=== PATIENT | female | born 1985 | race Caucasian/White ===

== ENCOUNTER 2016-08-17 22:14 | Emergency (ER) | payer OTHER ==
[~2016-08-17] VITALS: Ht 162.6 cm; Wt 65.9 kg
[2016-08-17 22:19] VITALS: BP 128/90; PULSE 83; RESP 16; O2SAT 98
[2016-08-17 22:58] LABS: APPEARANCE,URINE CLEAR (CLEAR,HAZY); COLOR,URINE YELLOW (YELLOW); OCCULT BLOOD,URINE NEGATIVE (NEGATIVE); UROBILINOGEN,URINE NORMAL (NORMAL)
--- NOTE | 2016-08-17 23:12 | ED.REPORT ---
HPI-General Illness Date of Service Aug 17, 2016 ED Provider: Ramy Bingham MD A 31 year old female with a history of smoking and migraines presents to the ED complaining of flu-like symptoms. Her symptoms began as a sore throat five days ago, and progressed to body aches, headache, productive cough with green and yellow sputum, rhinorrhea, nausea, and vomiting. The pt has been missing work, and is concerned because her symptoms do not appear to be improving. Nursing Notes Stated Complaint: FLU LIKE SYMPTOMS Chief Complaint: FLU/Cold Symptoms Nursing Notes Reviewed: Yes Allergies: Coded Allergies: No Known Allergies (Unverified , 08/17/16) Scheduled Nicotine 7 mg/24 hr Patch (Nicotine 7 mg/24 hr Patch) 1 Each Patch.td24 1 PATCH TRANSDERM DAILY Ondansetron ODT (Ondansetron ODT) 8 Mg Tab.rapdis 8 MG PO QID General Time Seen by MD: 22:49 Chief Complaint Flu-like illness Hx Obtained From: Patient Arrived By: Walk-in Sudden in Onset?: No Onset Occurred: 5 days ago Symptom Duration: Since onset Recent Healthcare: No recent doctor visit, No recent hospitalization Similar Sx Previous: No Past Medical History Past Medical History migraines Past Surgical History none reported Smoking History Current Every Day Smoker Ambulatory Status Independent Review of Systems Full Review of Systems Ears / Nose / Throat: Reports: Sore throat Respiratory: Reports: Prod cough, green, Prod cough, yellow GI: Reports: Nausea, Vomiting Musculoskeletal: Reports: Myalgia, Denies: Back pain, Neck pain Skin: Denies Rash Allergy / Immune: Reports: Rhinorrhea Neurologic: Reports: Headache Complete sys rev & neg: except as marked. Physical Exam Vital Signs Vital Signs Date Time Temp Pulse Resp B/P Pulse Ox O2 Delivery O2 Flow Rate FiO2 08/17/16 22:19 36.3 83 16 128/90 98 Initial VS: Reviewed General/Constitutional: Awake, Alert Head / Eyes: Atraumatic, Normocephalic, PERRL, EOMI ENT: Atraumatic, Airway patent, Pharynx NL Mouth: Positive: Mucous membranes dry (slight) Neck: Atraumatic, Supple, Full range of motion Respiratory / Chest: Atraumatic, Breath sounds NL, Breath sounds = bilat, No respiratory distress Cardiovascular: Heart rate NL, Regular rhythm, Heart sounds NL Abdomen: Atraumatic, Soft, Non-tender Back: Atraumatic, Full range of motion Upper Extremities Upper Extremity / MS: Atraumatic, Full range of motion Lower Extremity / Pelvis / MS: Atraumatic, Full range of motion Skin: Atraumatic, Color NL, No rash, Warm, Dry Neurologic: Oriented X3, Speech NL, No motor deficits, No sensory deficits Psychiatric: Affect NL, Mood NL Interpretation & Diagnostics Lab Results Interpretation Test 08/17/16 22:30 Urine Color Yellow (YELLOW) Urine Appearance Clear (CLEAR,HAZY) Urine pH 6.0 (5.0-8.0) Urine Specific [place] 1.015 (1.003-1.035) Urine Protein Negativemg/dL (NEG,TRACE) Urine Glucose (UA) Negativemg/dL (NEGATIVE) Urine Ketones Negativemg/dL (NEGATIVE) Urine Occult Blood Negative (NEGATIVE) Urine Nitrite Negative (NEGATIVE) Urine Bilirubin Negative (NEGATIVE) Urine Urobilinogen Normalmg/dL (NORMAL) Urine Leukocyte Esterase Negative (NEGATIVE) Urine RBC 0-2/hpf (0-2) Urine WBC 0-5/hpf (0-5) Urine Epithelial Cells Occasional/hpf (NONE-MOD) Urine Crystals None seen (NONE SEEN) Urine Bacteria Few/hpf (NONE-FEW) Urine Hyaline Casts None/lpf (NONE) Urine Granular Casts None seen (NONE SEEN) Urine Waxy Casts None seen (NONE SEEN) Urine Red Blood Cell Casts None seen (NONE SEEN) Urine White Blood Cell Casts None seen (NONE SEEN) Urine Mucus None seen (None Seen) Urine Trichomonas None seen (NONE SEEN) Urine Yeast None (NONE SEEN) Urinalysis Comment None Urine Culture Reflexed Not indicated X-Ray Chest Interpretation Chest Xray Interpretation: no acute findings Interpretation / Wet Read by: Wet read ED physician Re-Eval/Medical Decision Med Decision/Clinical Course 31-year-old with flulike illness and flu season. X-ray negative for infiltrate. No indication for antibiotics. Home with puffer spacer and nausea relief. Discharged in stable condition. Source of Hx: Old records Time of Eval: 00:11 Patient Status: Condition improved Re-Evaluation/Progress Note: Pt rechecked, who is comfortable. She is informed of her radiology results, diagnosis, and the plan for discharge. The pt understands and agrees with the plan. All questions are addressed at this time. Counseled Regarding: Diagnosis, Lab results, Need for follow-up, When/why to return to ED Discharge & Departure Primary Impression: Influenza Additional Impression: Nausea and vomiting Disposition: Home Discharge Condition All VS Reviewed: Yes Condition: Stable Patient Instructions: Influenza (ED) Additional Instructions: Albuterol puffer two puffs every four hours as needed for cough. Zofran four times daily if needed for nausea. Drink plenty of fluids and stay well-hydrated. Stop smoking. Use the patches as needed for the month that you stop and never go back. Ibuprofen four times daily as needed for headaches. Return if any bleeding issues. Follow-up with your doctor in the office. Referrals: [facility] Andreina Attestation Portions of this note were transcribed by Alexis Wright. I, Dr. Bingham personally performed the history, physical exam and medical decision-making; I reviewed and confirmed the accuracy of the information in the transcribed note. Signed by: Andreina Ace, 08/18/2016 and 0041. copies to: [facility] Ramy Bingham MD Aug 17, 2016 23:12 ALEXIS WRIGHT Aug 17, 2016 23:19
[2016-08-17] MEDS ORDERED: NIC7 TRANSDERM (23:37)
[2016-08-17] MEDS ORDERED: ONDA8TAB10 PO (23:38)
[2016-08-17] MEDS ORDERED: Ondansetron 8 mg ODT Tablet PO ONE (23:40)
[2016-08-17] MEDS ORDERED: _Albuterol-HFA 60 Puff Inhaler INHALATION PRN (23:40)
--- NOTE | 2016-08-18 08:59 | DRSVH ---
PROCEDURE: X-RAY CHEST, TWO VIEWS ([id number]) INDICATIONS: cough TECHNIQUE: 2 views of the chest were acquired. COMPARISON: None. FINDINGS: Surgical changes and devices: None. Lungs and pleura: No pleural effusions or pneumothorax. Lungs are clear. Mediastinum: Mediastinal contours are normal. Heart size is normal. Bones and chest wall: No suspicious bony abnormalities. Soft tissues appear unremarkable. IMPRESSION: No acute cardiopulmonary disease process. Dictated by: Lisandra Matamoros MD, PhD on 08/18/2016 at 8:58 Approved by: Lisandra Matamoros MD, PhD on 08/18/2016 at 8:58
== END 2016-08-18 00:24 | disposition home or self-care (01) ==
LOC: SED 22:14
DX: J11.1 Influenza due to unidentified influenza virus with other respiratory manifestations (principal); R11.2 Nausea with vomiting, unspecified; J34.89 Other specified disorders of nose and nasal sinuses; F17.200 Nicotine dependence, unspecified, uncomplicated